=== PATIENT | female | born 1985 | race African-American/Black ===

== ENCOUNTER 2018-10-09 15:34 | Emergency (ER) | payer OTHER ==
[~2018-10-09] VITALS: Ht 149.9 cm; Wt 61.2 kg
[2018-10-09 16:31] LABS: URINE BILIRUBIN NEGATIVE (Negative); URINE BLOOD TRACE (Negative); URINE CLARITY CLEAR; URINE COLOR ORANGE; URINE GLUCOSE-RANDOM* TRACE (Negative); URINE KETONES NEGATIVE (Negative); URINE PROTEIN (DIPSTICK) TRACE (Negative); URINE SPECIFIC GRAVITY <= 1.005 (1.005-1.035)
[2018-10-09 16:33] LABS: URINE LEUKOCYTES-REFLEX 2+ (Negative); URINE NITRITE-REFLEX POSITIVE (Negative)
[2018-10-09 16:39] LABS: CASTS None Seen /LPF (None Seen); CRYSTALS None Seen /LPF (None Seen); SQUAMOUS 4-10 Moderate /LPF (0-3)
[2018-10-09 16:40] LABS: BACTERIA-REFLEX 1-9 Few /HPF (None Seen); URINE RBC 0-2 Rare /HPF (0-2)
[2018-10-09] MEDS ORDERED: PYRIDIUM200 M2 PO (17:08)
[2018-10-09] MEDS ORDERED: MACROBID 100 M100 M2 PO (17:08)
[2018-10-09 17:17] VITALS: BP 162/84
== END 2018-10-09 17:18 | disposition home or self-care (01) ==
LOC: ER 15:34
PROVIDERS: Nurse Practitioner
DX: N39.0 Urinary tract infection, site not specified (principal)